=== PATIENT | female | born 1990 | race Caucasian/White ===

== ENCOUNTER 2016-12-23 02:04 | Emergency (ER) | payer MEDICAID ==
[2016-12-23 02:49] LABS: BASOPHIL % 0.1 % (0-2); PLATELET COUNT 185 x10^3mcL (130-400); RED CELL DISTRIBUTION WIDTH 13.8 % (11.5-14.5)
[2016-12-23 02:53] LABS: CALCIUM 8.8 mg/dL (8.5-10.1); CARBON DIOXIDE 22.3 mmol/L (21-32); CHLORIDE SERUM 103 mmol/L (98-107); CREATININE SERUM 0.5 mg/dL (0.6-1.0); GFR1 > 60 mL/min; GLUCOSE SERUM 114 mg/dL (74-106); POTASSIUM SERUM 3.2 mmol/L (3.5-5.1); SODIUM SERUM 137 mmol/L (136-145)
[2016-12-23 02:55] LABS: ALBUMIN 2.9 g/dL (3.4-5.0)
[2016-12-23 03:06] LABS: ALT/SGPT 20 U/L (14-59); AST/SGOT 26 U/L (15-37); BILIRUBIN TOTAL 0.29 mg/dL (0.20-1.00)
[2016-12-23 03:07] LABS: ALKALINE PHOSPHATASE 101 U/L (46-116)
[2016-12-23 04:37] VITALS: BP 139/102
== END 2016-12-23 04:37 | disposition home or self-care (01) ==
LOC: ED 02:04
PROVIDERS: Emergency Medicine
DX: O99.613 Diseases of the digestive system complicating pregnancy, third trimester (principal); K29.70 Gastritis, unspecified, without bleeding; K80.20 Calculus of gallbladder without cholecystitis without obstruction; Z3A.28 28 weeks gestation of pregnancy
CPT/HCPCS: 36415; Q0092

== ENCOUNTER 2017-04-29 12:59 | Inpatient (IN) | payer MEDICAID ==
[~2017-04-29] VITALS: Ht 160 cm; Wt 91.6 kg
[2017-04-29 14:12] LABS: BASOPHIL % 0.4 % (0-2); PLATELET COUNT 224 x10^3mcL (130-400)
[2017-04-29 14:17] LABS: RED CELL DISTRIBUTION WIDTH 16.8 % (11.5-14.5)
[2017-04-29 14:28] LABS: CALCIUM 8.8 mg/dL (8.5-10.1); CARBON DIOXIDE 26.6 mmol/L (21-32); CHLORIDE SERUM 104 mmol/L (98-107); CREATININE SERUM 0.7 mg/dL (0.6-1.0); GFR1 > 60 mL/min; GLUCOSE SERUM 106 mg/dL (74-106); POTASSIUM SERUM 3.9 mmol/L (3.5-5.1); SODIUM SERUM 142 mmol/L (136-145)
[2017-04-29 14:35] LABS: ALBUMIN 4.2 g/dL (3.4-5.0); ALKALINE PHOSPHATASE 142 U/L (46-116); ALT/SGPT 149 U/L (14-59); AST/SGOT 116 U/L (15-37); BILIRUBIN TOTAL 0.3 mg/dL (0.20-1.00); TOTAL PROTEIN, SERUM 8.1 g/dL (6.4-8.2)
[2017-04-29 15:05] LABS: LIPASE 10135 IU/L (73-393)
[2017-04-29 16:15] LABS: T3 TOTAL 1.18 ng/mL
[2017-04-29 16:40] LABS: CHOLESTEROL/HDL RATIO 2.7; MAGNESIUM 1.9 mg/dL (1.8-2.4); PHOSPHOROUS 4.1 mg/dL (2.5-4.9)
[2017-04-29 16:59] LABS: FREE T4 0.94 ng/dL (0.76-1.46); FREE THYROXINE INDEX 2.8 ug/dL (1.4-4.5); T4(THYROXINE) 8.1 ug/dL (4.7-13.3)
[2017-04-29 17:23] VITALS: BP 115/71
[2017-04-29 20:13] VITALS: BP 102/41
[2017-04-29 20:32] LABS: UA SPECIFIC GRAVITY 1.025 (1.005-1.035); microscopic required? YES; urine erythrocyte NEGATIVE (NEGATIVE)
[2017-04-30 05:08] VITALS: BP 99/56
[2017-04-30 06:27] LABS: BASOPHIL % 0.2 % (0-2); PLATELET COUNT 183 x10^3mcL (130-400)
[2017-04-30 07:01] LABS: CALCIUM 7.6 mg/dL (8.5-10.1); CARBON DIOXIDE 26.1 mmol/L (21-32); CHLORIDE SERUM 107 mmol/L (98-107); CREATININE SERUM 0.6 mg/dL (0.6-1.0); GFR1 > 60 mL/min; GLUCOSE SERUM 92 mg/dL (74-106); MAGNESIUM 1.8 mg/dL (1.8-2.4); PHOSPHOROUS 3.3 mg/dL (2.5-4.9); POTASSIUM SERUM 3.5 mmol/L (3.5-5.1); SODIUM SERUM 144 mmol/L (136-145)
[2017-04-30 07:14] VITALS: Ht 160 cm; Wt 91.6 kg
[2017-04-30 07:14] LABS: RED CELL DISTRIBUTION WIDTH 17.1 % (11.5-14.5)
[2017-04-30 08:35] VITALS: BP 94/39
[2017-04-30 08:39] VITALS: BP 94/39
[2017-04-30 09:36] LABS: AMYLASE 162 U/L (25-115)
[2017-04-30 09:44] LABS: LIPASE 2839 IU/L (73-393)
[2017-04-30 13:11] LABS: IRON 89 ug/dL (50-170); TOTAL IRON BINDING CAPACITY 304 ug/dL (250-450)
[2017-04-30 15:10] VITALS: BP 116/69
[2017-04-30 16:31] VITALS: BP 96/53
[2017-04-30 21:59] VITALS: BP 103/50
[2017-05-01 05:48] VITALS: BP 99/54
[2017-05-01 06:06] LABS: BASOPHIL % 0.1 % (0-2); PLATELET COUNT 188 x10^3mcL (130-400)
[2017-05-01 06:12] LABS: RED CELL DISTRIBUTION WIDTH 16.3 % (11.5-14.5)
[2017-05-01 06:37] LABS: CALCIUM 8.1 mg/dL (8.5-10.1); CARBON DIOXIDE 23.9 mmol/L (21-32); CHLORIDE SERUM 107 mmol/L (98-107); CREATININE SERUM 0.6 mg/dL (0.6-1.0); GFR1 > 60 mL/min; GLUCOSE SERUM 91 mg/dL (74-106); MAGNESIUM 1.9 mg/dL (1.8-2.4); PHOSPHOROUS 3.7 mg/dL (2.5-4.9); POTASSIUM SERUM 3.8 mmol/L (3.5-5.1); SODIUM SERUM 142 mmol/L (136-145)
[2017-05-01 07:31] LABS: RED BLOOD CELLS 3.89 M/mm3 (4.10-5.10)
[2017-05-01 10:20] VITALS: BP 98/52
[2017-05-01 11:49] VITALS: BP 98/52
== END 2017-05-01 14:02 | disposition home or self-care (01) | DRG 263 ==
LOC: ED 12:59 → DU 15:15
PROVIDERS: Emergency Medicine; Family Medicine
PROC: 0FT44ZZ Resection of Gallbladder, Percutaneous Endoscopic Approach (ICD-10-PCS; principal; 2017-04-29)
DX: K80.70 Calculus of gallbladder and bile duct without cholecystitis without obstruction (principal); K85.10 Biliary acute pancreatitis without necrosis or infection; N39.0 Urinary tract infection, site not specified; D64.9 Anemia, unspecified; D72.89 Other specified disorders of white blood cells; Z90.49 Acquired absence of other specified parts of digestive tract; Z72.89 Other problems related to lifestyle
CPT/HCPCS: 83880; 84439; J0330; J0690; J0696; J1170; J1885; J2175; J2250; J2405; J2704; J2710; J3010; J3490; J7030; J7120; Q0092

== ENCOUNTER 2017-09-11 15:04 | Emergency (ER) | payer MEDICAID ==
[~2017-09-11] VITALS: Ht 160 cm; Wt 97.5 kg
[2017-09-11 16:56] VITALS: BP 115/68
== END 2017-09-11 16:56 | disposition home or self-care (01) ==
LOC: ED 15:04
DX: R42 Dizziness and giddiness (principal)

== ENCOUNTER 2018-03-21 21:23 | Emergency (ER) | payer BC ==
[~2018-03-21] VITALS: Ht 154.9 cm; Wt 102.1 kg
[2018-03-21 21:50] VITALS: Ht 154.9 cm; Wt 102.1 kg
[2018-03-21 23:41] VITALS: BP 110/36
== END 2018-03-21 23:58 | disposition home or self-care (01) ==
LOC: ED 21:23
DX: J03.90 Acute tonsillitis, unspecified (principal); R51 Headache
CPT/HCPCS: J0561; J1100

== ENCOUNTER 2018-06-05 11:32 | Emergency (ER) | payer BC ==
[~2018-06-05] VITALS: Ht 160 cm; Wt 102.1 kg
[2018-06-05 11:41] VITALS: BP 117/73
[2018-06-05 13:36] LABS: BASOPHIL % 0.4 % (0-2); PLATELET COUNT 173 x10^3mcL (130-400); RED CELL DISTRIBUTION WIDTH 13.3 % (11.5-14.5)
== END 2018-06-05 14:39 | disposition home or self-care (01) ==
LOC: ED 11:32
PROVIDERS: Emergency Medicine
DX: N94.6 Dysmenorrhea, unspecified (principal)
CPT/HCPCS: 36415

== ENCOUNTER 2018-09-05 12:41 | Emergency (ER) | payer BC ==
[~2018-09-05] VITALS: Ht 160 cm; Wt 99.3 kg
[2018-09-05 12:52] VITALS: Ht 160 cm; Wt 99.3 kg
[2018-09-05 16:19] VITALS: BP 120/74
== END 2018-09-05 16:19 | disposition home or self-care (01) ==
LOC: ED 12:41
DX: J32.4 Chronic pansinusitis (principal); E66.9 Obesity, unspecified; Z68.38 Body mass index [BMI] 38.0-38.9, adult; Z90.49 Acquired absence of other specified parts of digestive tract; Z90.89 Acquired absence of other organs; W01.198A Fall on same level from slipping, tripping and stumbling with subsequent striking against other object, initial encounter; Y93.89 Activity, other specified; Y92.810 Car as the place of occurrence of the external cause; Y99.8 Other external cause status
CPT/HCPCS: J3030